=== PATIENT | female | born 1995 | race African-American/Black ===

== ENCOUNTER 2020-02-27 16:10 | Emergency (ER) | payer OTHER ==
[~2020-02-27] VITALS: Ht 167.6 cm; Wt 61.2 kg
[2020-02-27 16:12] VITALS: BP 125/79
[2020-02-27] MEDS ORDERED: IBUPROFEN 600 MG TAB PO ONE (16:15)
[2020-02-27 16:41] VITALS: BP 125/79
== END 2020-02-27 16:41 | disposition home or self-care (01) ==
LOC: MED 16:10
DX: S29.019A Strain of muscle and tendon of unspecified wall of thorax, initial encounter (principal); R51.9 Headache, unspecified; Z02.89 Encounter for other administrative examinations; V89.2XXA Person injured in unspecified motor-vehicle accident, traffic, initial encounter; Y93.89 Activity, other specified; Y92.89 Other specified places as the place of occurrence of the external cause; Y99.8 Other external cause status
CPT/HCPCS: 99283